=== PATIENT | male | born 1960 | race Caucasian/White ===

== ENCOUNTER 2019-07-31 00:39 | Observation (INO) ==
[2019-07-31 01:14] LABS: BASO# 0.02 X1000 (0.0-0.2); BASO% 0.3 % (0.0-0.8); EOS% 4.2 % (0.0-10.0); HEMATOCRIT 42.7 % (42.0-52.0); HEMOGLOBIN 14.3 g/dL (14.0-18.0); IMM GRAN# 0.01 X1000 (0.0-0.04); IMM GRAN% 0.1 % (0.0-0.5); LYMPH# 3.13 X1000 (1.2-3.4); LYMPH% 44.1 % (20.5-51.1); MCHC 33.5 g/dL (33-37); MCV 92.6 FL (81-99); MONO# 0.52 X1000 (0.11-0.59); MONO% 7.3 % (1.7-9.3); MPV 9.5 FL (7.4-10.4); NEUT# 3.12 X1000 (1.4-6.5); PLT 333 X1000 (130-400); RBC 4.61 XMIL (4.7-6.1); RDW 13.1 % (11.5-14.5)
[2019-07-31 01:19] LABS: BE -2.6 mmoll (-2.0-2.0); BLOOD TYPE VENOUS; HCO3-(ACT) 22.5 mmoll (22-27); PCO2(98.6) 31 mmHg (40-60); PO2(98.6) 51 mmHg (30-55); SAMPLE BLOOD; SAO2 89.1 % (40.0-85.0); pH(98.6) 7.43 (7.32-7.43)
[2019-07-31 01:44] LABS: AGAP 18; ALBUMIN 4.7 g/dL (3.5-5.0); ALKALINE PHOSPHATASE 54 U/L (32-122); BUN 15 mg/dL (8-22); CALCIUM 8.6 mg/dL (8.8-10.2); CHLORIDE 103 mmol/L (98-107); COSMO 283; CREATININE 0.8 mg/dL (0.7-1.2); ESTIMATED GFR > 60; GLUCOSE 153 mg/dL (70-104); GOT 19 U/L (10-34); GPT 21 U/L (10-44); POTASSIUM 4.2 mmol/L (3.5-5.1); SODIUM 140 mmol/L (136-145); TCO2 19 mmol/L (25-35); TOTAL BILIRUBIN < 0.15 mg/dL (0.20-1.00); TOTAL PROTEIN 7.2 g/dL (6.3-8.3)
[2019-07-31 01:55] LABS: INR 0.95; PROTIME 13.2 Seconds (11.0-16.0)
[2019-07-31] MEDS ORDERED: DUONEB (A & A) INH ONE (02:09)
--- NOTE | 2019-07-31 03:36 | PROVIDER DOCUMENTATION ---
This chart was entered by Yaquelin Cooley Scribe, acting as scribe for Anirudh Umanzor MD. HPI-Chest Pain - General Chief Complaint: Chest Pain Stated Complaint: SOB/NAUSEA Time Seen by Provider: 07/31/19 00:44 Source: patient Allergies/Adverse Reactions: Patient Allergies Allergy/AdvReac Type Severity Reaction Status Date / Time No Known Allergies Allergy Verified 07/31/19 02:51 Home Medications: Home Medication List Medication Instructions Recorded Confirmed Last Taken Type Sildenafil Citrate 20 mg PO DIRECTED 07/31/19 07/31/19 Unknown History - History of Present Illness-CP Nature of Presenting Problem: pt is a 59 yr old male presenting with complaint of chest pain and shortness of breath. pt admits left chest pain radiating to left hand, no prior hx. pt does admit hx of HTN. pt admits shortness of breath, nausea and vomiting. Location: reports: substernal Chest Pain Radiation: reports: other (left hand) Quality of Pain: reports: pressure Severity in ED: moderate Onset/Duration: this evening Timing: still present Context/Activities at Onset: reports: light activity Modifying Factors: improves with: nothing Associated Symptoms: reports: nausea, shortness of breath, vomiting. denies: diaphoresis, fever/chills Nitro Today/Relief: no nitro taken today Aspirin Treatment Today: no aspirin today Prior Chest Pain/Cardiac Workup: reports: no prior chest pain Similar Symptoms Previously?: No Recently Seen Here or By Another Healthcare Provider: No Review of Systems - Adult - REVIEW OF SYSTEMS - ADULT Constitutional: denies: fever, fatique Eyes: reports: no symptoms reported Ears, Nose, Mouth & Throat: reports: no symptoms reported Cardiovascular: reports: chest pain. denies: palpitations, syncope Respiratory: reports: shortness of breath. denies: cough, dyspnea on exertion Gastrointestinal: reports: nausea, vomiting. denies: abdominal pain Genitourinary: reports: no symptoms reported Musculoskeletal: denies: back pain, joint pain, neck pain Integumentary: reports: no symptoms reported Neurological: denies: dizziness/vertigo, headache/migraines Psychiatric: reports: no symptoms reported Endocrine: reports: no symptoms reported Hematologic/Lymphatic: reports: no symptoms reported Allergic/Immunologic: reports: no symptoms reported All Other Systems: Reviewed and Negative Past History - Adult - PAST MEDICAL HISTORY-ADULT Review of Records: reports: Old Records Reviewed, Nursing Assessment Review, Medications Reviewed, Social history reviewed & non-contributory. Major Childhood Illnesses: reports: denies history Cardiovascular: reports: denies history Respiratory: reports: denies history Gastrointestinal: reports: denies history Obstetrical/Gynecological: reports: denies history Genitourinary: reports: denies history Musculoskeletal: reports: chronic pain, neck/back injury Neurological: reports: denies history Psychiatric: reports: anxiety Endocrine/Immune: reports: denies history Other Conditions: reports: denies history - PRIOR SURGERIES/PROCEDURES Surgical/Procedure History: reports: none - IMMUNIZATION STATUS Childhood Immunizations: See Nurse Assessment Flu Vaccine: See Nurse Assessment - FAMILY HISTORY Family History: reviewed, not pertinent - SOCIAL HISTORY Smoking: denies Substance Use: denies Living Situation: family Physical Exam-General - PHYSICAL EXAM-ADULT Initial Vital Signs Reviewed: Yes - CONSTITUTIONAL General Appearance: alert, no apparent distress, anxious - EYES Eyes: PERRL/EOMI - HEAD, EARS, NOSE, MOUTH & THROAT HENMT: normocephalic/atraumatic, moist mucous membranes, normal ENT inspection - NECK Neck: non-tender, full range of motion, supple, normal inspection - RESPIRATORY Respiratory: chest non-tender, lungs clear, normal breath sounds, no respiratory distress, no accessory muscle use, increased rate - CARDIOVASCULAR Cardiovascular: normal peripheral pulses, regular rate, rhythm, no edema - GASTROINTESTINAL (ABDOMEN) Abdominal Exam: normal bowel sounds, non tender, soft - LYMPHATIC Lymphatic: no adenopathy - MUSCULOSKELETAL Back Exam: normal inspection Extremity: normal range of motion, non-tender, normal gait - SKIN Integumentary: normal color, normal turgor, warm/dry - NEUROLOGIC Neurologic: grossly normal, no motor/sensory deficits - PSYCHIATRIC Psych/Mental Status: anxious - HEART Score HEART Score: History: Slightly Suspicious HEART Score: ECG: Non-Specific Repolarization Disturbance/LBBB/PM HEART Score: Age: 45-65 Years HEART Score: Risk Factors for Atherosclerotic Disease: 1 or 2 Risk Factors HEART Score: Troponin: < or = Normal Limit Total HEART Score:: 3 Progress - PLAN OF CARE/RESULTS Progress/Plan/Lab Results: Vital Signs - 8 hr 07/31/19 00:40 07/31/19 01:00 07/31/19 01:15 Temperature 98.0 F Pulse Rate 72 66 65 Respiratory Rate 16 18 18 Blood Pressure 139/97 127/83 137/94 O2 Sat by Pulse Oximetry 98 98 95 07/31/19 02:43 Temperature Pulse Rate 69 Respiratory Rate 22 Blood Pressure O2 Sat by Pulse Oximetry 97 Laboratory Results - last 24 hr 07/31/19 07/31/19 07/31/19 00:49 00:49 00:49 WBC 7.10 RBC 4.61 L Hgb 14.3 Hct 42.7 MCV 92.6 MCH 31.0 MCHC 33.5 RDW Std Deviation 13.1 Plt Count 333 MPV 9.5 Immature Gran % (Auto) 0.1 Neut % (Auto) 44.0 Lymph % (Auto) 44.1 [place] % (Auto) 7.3 Eos % (Auto) 4.2 Baso % (Auto) 0.3 Immature Gran # (Auto) 0.01 Neut # (Auto) 3.12 Lymph # (Auto) 3.13 [place] # (Auto) 0.52 Eos # (Auto) 0.30 Baso # (Auto) 0.02 PT INR PTT (Actin FS) D-Dimer, Quantitative Specimen Type VBG pH VBG pCO2 VBG pO2 VBG HCO3 VBG O2 Saturation VBG Base Excess VBG Lactate Sodium 140 Potassium 4.2 Chloride 103 Carbon Dioxide 19 L Anion Gap 18 BUN 15 Creatinine 0.8 Estimated GFR/1.73 m2 > 60 BUN/Creatinine Ratio 19 Glucose 153 H Calculated Osmolality 283 Calcium 8.6 L Total Bilirubin < 0.15 L AST 19 ALT 21 Alkaline Phosphatase 54 Troponin T < 0.010 Ami-A-Fcyzxsfhwcv Pept Total Protein 7.2 Albumin 4.7 Globulin 3.0 Albumin/Globulin Ratio 2.0 Plasma Lactate Urine Source Urine Color Urine Turbidity Urine pH Ur Specific [place] Urine Protein Ur Glucose (Stick) Ur Ketones (Stick) Urine Blood Urine Nitrite Urine Bilirubin Urobilinogen Dipstick Urine Leukocytes Urine WBC (Auto) Urine RBC (Auto) U Epithel Cells (Auto) Urine Bacteria (Auto) Plasma/Serum Ethyl Alc 07/31/19 07/31/19 07/31/19 00:49 00:49 00:49 WBC RBC Hgb Hct MCV MCH MCHC RDW Std Deviation Plt Count MPV Immature Gran % (Auto) Neut % (Auto) Lymph % (Auto) [place] % (Auto) Eos % (Auto) Baso % (Auto) Immature Gran # (Auto) Neut # (Auto) Lymph # (Auto) [place] # (Auto) Eos # (Auto) Baso # (Auto) PT 13.2 INR 0.95 PTT (Actin FS) 23.0 D-Dimer, Quantitative Specimen Type VBG pH VBG pCO2 VBG pO2 VBG HCO3 VBG O2 Saturation VBG Base Excess VBG Lactate Sodium Potassium Chloride Carbon Dioxide Anion Gap BUN Creatinine Estimated GFR/1.73 m2 BUN/Creatinine Ratio Glucose Calculated Osmolality Calcium Total Bilirubin AST ALT Alkaline Phosphatase Troponin T Fin-S-Hjxwtfvvgzy Pept 19 Total Protein Albumin Globulin Albumin/Globulin Ratio Plasma Lactate Urine Source Urine Color Urine Turbidity Urine pH Ur Specific [place] Urine Protein Ur Glucose (Stick) Ur Ketones (Stick) Urine Blood Urine Nitrite Urine Bilirubin Urobilinogen Dipstick Urine Leukocytes Urine WBC (Auto) Urine RBC (Auto) U Epithel Cells (Auto) Urine Bacteria (Auto) Plasma/Serum Ethyl Alc 184 H 07/31/19 07/31/19 07/31/19 00:49 00:55 02:13 WBC RBC Hgb Hct MCV MCH MCHC RDW Std Deviation Plt Count MPV Immature Gran % (Auto) Neut % (Auto) Lymph % (Auto) [place] % (Auto) Eos % (Auto) Baso % (Auto) Immature Gran # (Auto) Neut # (Auto) Lymph # (Auto) [place] # (Auto) Eos # (Auto) Baso # (Auto) PT INR PTT (Actin FS) D-Dimer, Quantitative < 0.27 Specimen Type VENOUS VBG pH 7.43 VBG pCO2 31 L VBG pO2 51 VBG HCO3 22.5 VBG O2 Saturation 89.1 H VBG Base Excess -2.6 L VBG Lactate 2.80 H Sodium Potassium Chloride Carbon Dioxide Anion Gap BUN Creatinine Estimated GFR/1.73 m2 BUN/Creatinine Ratio Glucose Calculated Osmolality Calcium Total Bilirubin AST ALT Alkaline Phosphatase Troponin T Hbk-E-Pivtinfxaqj Pept Total Protein Albumin Globulin Albumin/Globulin Ratio Plasma Lactate 2.5 H Urine Source Urine Color Urine Turbidity Urine pH Ur Specific [place] Urine Protein Ur Glucose (Stick) Ur Ketones (Stick) Urine Blood Urine Nitrite Urine Bilirubin Urobilinogen Dipstick Urine Leukocytes Urine WBC (Auto) Urine RBC (Auto) U Epithel Cells (Auto) Urine Bacteria (Auto) Plasma/Serum Ethyl Alc 07/31/19 02:57 WBC RBC Hgb Hct MCV MCH MCHC RDW Std Deviation Plt Count MPV Immature Gran % (Auto) Neut % (Auto) Lymph % (Auto) [place] % (Auto) Eos % (Auto) Baso % (Auto) Immature Gran # (Auto) Neut # (Auto) Lymph # (Auto) [place] # (Auto) Eos # (Auto) Baso # (Auto) PT INR PTT (Actin FS) D-Dimer, Quantitative Specimen Type VBG pH VBG pCO2 VBG pO2 VBG HCO3 VBG O2 Saturation VBG Base Excess VBG Lactate Sodium Potassium Chloride Carbon Dioxide Anion Gap BUN Creatinine Estimated GFR/1.73 m2 BUN/Creatinine Ratio Glucose Calculated Osmolality Calcium Total Bilirubin AST ALT Alkaline Phosphatase Troponin T Eps-G-Rllukefxcad Pept Total Protein Albumin Globulin Albumin/Globulin Ratio Plasma Lactate Urine Source CLEAN CATCH Urine Color YELLOW Urine Turbidity CLEAR Urine pH 5.5 Ur Specific [place] 1.011 Urine Protein NEGATIVE Ur Glucose (Stick) NEGATIVE Ur Ketones (Stick) TRACE A Urine Blood NEGATIVE Urine Nitrite NEGATIVE Urine Bilirubin NEGATIVE Urobilinogen Dipstick NORMAL Urine Leukocytes NEGATIVE Urine WBC (Auto) <10 Urine RBC (Auto) <10 U Epithel Cells (Auto) <10 Urine Bacteria (Auto) NEGATIVE Plasma/Serum Ethyl Alc Orders Category Date Time Status CHEST-1 VIEW [RAD] Stat Exams 07/31/19 00:[address] THORAX W/CONTRAST [CT] Stat Exams 07/31/19 02:47 Taken ALCOHOL BLOOD Stat Lab 07/31/19 00:49 Completed BLOOD CULTURE [BLDCUL] Stat Lab 07/31/19 03:37 Ordered CBC WITH ELECTRONIC DIFF [HEME] Stat Lab 07/31/19 00:49 Completed COMPREHENSIVE METABOLIC PANEL [CHEM] Stat Lab 07/31/19 00:49 Completed D-DIMER [COAG] Stat Lab 07/31/19 00:49 Completed LACTATE, PLASMA [CHEM] Stat Lab 07/31/19 02:13 Completed PRO B-NATRIURETIC PEPTIDE Stat Lab 07/31/19 00:49 Completed PROTIME WITH INR [COAG] Stat Lab 07/31/19 00:49 Completed PTT [COAG] Stat Lab 07/31/19 00:49 Completed TROPONIN T Stat Lab 07/31/19 00:49 Completed UA [URINALYSIS W/POSS RFLX CULT] [URINALYSIS] Stat Lab 07/31/19 02:57 Completed VBG [VENOUS BLOOD GAS] [RESP] Routine Lab 07/31/19 00:55 Completed Albuterol 2.5MG/Ipratrop 0.5MG [Duoneb (A & A)] Med 07/31/19 02:09 Discontinued 3 ml INH NOW ONE Banana Bag X1 Bag Over 1 Hour Med 07/31/19 04:34 Ordered Mvi [M.v.i.-12] 10 ml Folic Acid 1 mg Magnesium Sulfate 1 gm Thiamine 100 mg 0.9% Sodium Chloride Inj [Ns] 1,000 ml IV NOW Aerosol Treatments Routine Oth 07/31/19 02:09 Completed Aerosol Treatments Stat Oth 07/31/19 02:09 Completed EKG [EKG] Stat Ther 07/31/19 00:46 Ordered Result Diagrams: 07/31/19 00:49 07/31/19 00:49 - EKG 1 Time of EKG reading by physician:: 00:46 EKG Read and Signed by:: Anirudh Umanzor EKG Interpretation (*Must complete 3 of following elements*): Abnormal Rate: 72 Rhythm: sinus with SA and occ PVCs [place]: normal QRS: PVC's - CT/MRI 1 CT Study: Thorax Impression: Abnormal, See EMR Report - CONSULTS/PCP/HOSPITALIST Notification #1 *Consult/PCP/Hospitalist*: Dr Mendenhall Time Discussed: 04:39 Consult Disposition: Admit Departure - Departure Date of Disposition Decision: 07/31/19 Time of Disposition Decision: 04:39 DIAGNOSIS: Alcohol intoxication, Chest pain, SOB (shortness of breath), Hypoxia Disposition: ADMITTED INPATIENT 09 Certified Medical Emergency: Emergent Condition: Fair Referrals and Follow-Ups: Giselle Corbin MD [Primary Care Provider] - - Critical Care Note This patient required my direct & personal management of CC.: No Attestation - Physician/ ROSENDO Attestation Patient care was provided by Advanced Practice Provider:: No The physician spent face to face time with patient:: Yes Advanced Practice Provider documentation review:: Supervising physician onsite and consulted in the evaluation and care of this patient. The physician did have a face to face encounter with the patient. This chart was documented by the indicated scribe, (Yaquelin Cooley Scribe) and accurately reflects the services I performed and decisions made by me, Anirudh Umanzor MD, as attested by the provider's signature.
[2019-07-31 03:40] LABS: URINE SOURCE CLEAN CATCH
[2019-07-31 03:46] LABS: BILIRUBIN URINE NEGATIVE (NEGATIVE); BLOOD URINE NEGATIVE (NEGATIVE); COLOR YELLOW; GLUCOSE URINE NEGATIVE (NEGATIVE); KETONE URINE TRACE mg/dL (NEGATIVE); LEUKOCYTES URINE NEGATIVE (NEGATIVE); NITRITE URINE NEGATIVE (NEGATIVE); PH URINE 5.5; PROTEIN URINE NEGATIVE (NEGATIVE); SP GRAVITY URINE 1.011; TURBIDITY URINE CLEAR (CLEAR); UROBILINOGEN URINE NORMAL (NORMAL)
[2019-07-31 03:49] LABS: UR EPITHELIAL CELLS <10 /HPF (<10); URINE BACTERIA NEGATIVE /HPF; URINE RBC <10 /HPF (<10); URINE WBC <10 /HPF (<10)
[2019-07-31] MEDS ORDERED: M.V.I.-12 10 ML, FOLIC ACID 1 MG, MAGNESIUM SULFATE 1 GM, THIAMINE 100 MG in NS 1,000 ML IV ONE (04:34)
[2019-07-31] MEDS ORDERED: MORPHINE IV PRN ×2 (04:42→08:55)
[2019-07-31] MEDS ORDERED: ZOFRAN IV PRN (04:42)
[2019-07-31] MEDS ORDERED: ASPIRIN PO ONE (06:07)
--- NOTE | 2019-07-31 06:07 | EKG Report ---
Test Performed on : 07/31/2019 00:46:39 AM Test Reason : chest pain Blood Pressure : / mmHG Vent. Rate : 072 BPM Atrial Rate : 072 BPM P-R Int : 158 ms QRS Dur : 110 ms QT Int : 410 ms P-R-T Axes : 035 003 041 degrees QTc Int : 448 ms Sinus rhythm. with sinus arrhythmia. with occasional premature ventricular complexes. Otherwise normal ECG When compared with ECG of 17-MAY-2018 10:23, premature ventricular complexes. are now present Unconfirmed Result
[2019-07-31] MEDS ORDERED: FLU VACCINE IM ONE (06:26)
[2019-07-31] MEDS: DUONEB (A & A) INH SCH ×3 (07:34→14:46)
[2019-07-31] MEDS ORDERED: TYLENOL WITH CODEINE #3 PO ONE (08:52)
[2019-07-31] MEDS ORDERED: ZOFRAN ODT PO ONE (08:52)
--- NOTE | 2019-07-31 08:56 | Diag Imaging Result Doc PS360 ---
EXAM: CHEST-1 VIEW HISTORY: chest pain TECHNIQUE: Single view. COMPARISON: 05/17/2018 FINDINGS: There is cardiomegaly.. The pulmonary vasculature is not congested. No infiltrate, effusion, or pneumothorax is appreciated. IMPRESSION: No acute cardiopulmonary abnormality is identified. Electronically signed by Oliva Donnelly 07/31/2019 8:54 AM
--- NOTE | 2019-07-31 09:26 | Diag Imaging Result Doc PS360 ---
EXAM: CT THORAX W/CONTRAST HISTORY: sob TECHNIQUE: Images were obtained from the lung apices through bases as per standard protocol. This exam was performed using automated exposure control, adjustment of mA or kV according to patient size, and/or use of iterative reconstruction technique. COMPARISON: None. FINDINGS: Mediastinum: The heart size appears normal. No pericardial effusion is appreciated. No pathologically enlarged lymph nodes are identified. No aortic aneurysm. Marked coronary artery calcification. No hilar lymphadenopathy. Mild debris within the airway. Pulmonary parenchyma: 4 mm nodule is noted right middle lobe 59. There is linear atelectasis or fibrosis posteriorly. No bronchiectasis. Pleura: There are no pleural effusions. Bones: No fracture or destructive lesion is identified. There is a hiatal hernia and hepatic steatosis. IMPRESSION: No focal consolidation. Incidental findings described above.. Electronically signed by Oliva Donnelly 07/31/2019 9:23 AM
[2019-07-31 09:31] LABS: AGAP 18; BUN 13 mg/dL (8-22); CALCIUM 8.4 mg/dL (8.8-10.2); CHLORIDE 108 mmol/L (98-107); COSMO 286; CREATININE 0.7 mg/dL (0.7-1.2); ESTIMATED GFR > 60; GLUCOSE 110 mg/dL (70-104); POTASSIUM 4.4 mmol/L (3.5-5.1); SODIUM 143 mmol/L (136-145); TCO2 17 mmol/L (25-35)
[2019-07-31] MEDS ORDERED: NS 1,000 ML IV SCH (11:45)
--- NOTE | 2019-07-31 14:14 | HISTORY AND PHYSICAL ---
CHIEF COMPLAINT: Chest pain, nausea and vomiting. HISTORY OF PRESENT ILLNESS: This is a 59-year-old gentleman who denies any prior health history. He presents to the emergency room complaining of substernal chest pain that he describes as a pressure. It started shortly after nausea and vomiting. He did state that it relieved somewhat with vomiting. He also complained of left hand pain that he states also started shortly after vomiting. He denied any prior episodes of chest pain. He denied any palpitations, any cough or any black or bloody vomitus or stools. PAST MEDICAL HISTORY: Denies. PAST SURGICAL HISTORY: Denies. FAMILY HISTORY: Positive for hypertension. He is unsure of coronary artery disease. SOCIAL HISTORY: He drinks alcohol. He is not forthcoming on how much he drinks or how often. He denies any tobacco or illicit drug use. ALLERGIES: No known drug allergies. HOME MEDICATIONS: Viagra. REVIEW OF SYSTEMS: Discussed with the patient with pertinent positives stated in the HPI. He denied any syncope, dizziness, any palpitations, any black or bloody vomitus or stools, a productive cough, any fevers or chills, any diarrhea, constipation, hematuria, dysuria, frequency, urgency. PHYSICAL EXAMINATION: GENERAL: This is a 59-year-old gentleman who is lying in the bed on the [facility] floor in no distress. VITAL SIGNS: Blood pressure is 134/87 with a heart rate of 71, respirations are 18, temperature is 97.6 degrees with room air saturations 99%. EYES: Pupils are equal, round, react to light. EOMs are intact. Sclerae are anicteric. HEENT: Head is normocephalic, atraumatic. Mucous membranes are moist. NECK: Supple with trachea midline. CARDIOVASCULAR: Regular rate and rhythm. S1 and S2 are appreciated. Calves are nontender bilateral. He has no lower extremity edema with peripheral pulses palpable x4 extremities. PULMONARY: Breath sounds are noted with scattered expiratory wheezes. Chest rises and falls symmetric with respiration. Chest wall is nontender to palpation. GASTROINTESTINAL: Abdomen is soft, nontender, nondistended with bowel sounds in all 4 quadrants. NEUROLOGIC: He is sleepy after having Tylenol #3. He is alert and oriented x3 with cranial nerves 2-12 grossly intact. SKIN: Warm and dry. LABORATORY DATA: WBC is 7 with hemoglobin 14.3, hematocrit 42.7, and platelets of 333,000. D- dimer is less than 0.276. Sodium 140, potassium 4.2, BUN 15, creatinine 0.8, glucose of 153. Troponins are negative on multiple occasions. Blood cultures are pending. Chest x-ray revealed no acute cardiopulmonary abnormality identified. ASSESSMENT AND PLAN: 1. Chest pain. We will continue to trend troponins. He will be placed on telemetry. 2. Nausea and vomiting. 3. Alcohol intoxication. 4. Shortness of breath with hypoxemia with O2 saturations that have dropped to 92% with wheezing. 5. Headache. Plan was discussed with Dr. Mendenhall. Dictated by AUSTYN Lancaster for Aubrey Mendenhall MD cc: AUSTYN Lancaster MD
[2019-07-31] MEDS ORDERED: LEVAQUIN 750 MG/D5W 750 MG/150 ML IVPB IV SCH (14:30)
[2019-07-31] MEDS ORDERED: MUCINEX PO SCH (14:45)
[2019-07-31] MEDS ORDERED: SOLU-MEDROL IV SCH (14:45)
[2019-07-31 15:31] VITALS: BP 151/94
[2019-07-31] MEDS ORDERED: CLINDAMYCIN 600 MG/D5W 600 MG/50 ML IVPB IV SCH (16:00)
--- NOTE | 2019-07-31 18:54 | HISTORY AND PHYSICAL ---
ADDENDUM: Patient seen and examined by myself. Full note dictated and discussed with nurse practitioner. Patient notes he has had shortness of breath, coughing. He works around plaster. We are going to admit him to the hospital to rule out myocardial infarction and we will follow. cc: Aubrey Mendenhall MD
[2019-08-01] MEDS ORDERED: PRILOSEC PO SCH (07:00)
--- NOTE | 2019-08-01 09:44 | ECHO REPORT ---
ORDER DATE: 07/31/2019 MEASUREMENTS: Septal thickness 0.8, posterior wall thickness 1.0, left ventricular internal diameter in systole 2.8, left ventricular internal diameter in diastole 5.0, aortic root 3.4, left atrium 3.5. SUMMARY: 1. Fair quality study. 2. Aortic valve is without evidence of structural abnormality and opens adequately on 2- dimensional images. The peak gradient across the aortic valve is 10 mmHg. Mitral, tricuspid, and pulmonic valves are without evidence of structural abnormality with trace tricuspid regurgitation. The estimated systolic PA pressure by Doppler is 25 mmHg. The aortic root is normal in size. 3. Normal left ventricular dimensions suggested. The estimated left ventricular ejection fraction appears to be at least 65%. No regional wall motion abnormalities are evident. Left atrium, right atrium, and right ventricle are normal in size with grossly preserved right ventricular systolic function. 4. No pericardial effusion. 5. Inferior vena cava not well demonstrated. cc: MD Aubrey Warren MD
--- NOTE | 2019-08-02 00:22 | DISCHARGE SUMMARY ---
ADMISSION DATE: 07/31/2019 DISCHARGE DATE: 07/31/2019 DISCHARGE DIAGNOSES: 1. Chest pain, resolved. 2. Nausea and vomiting. 3. Acute alcohol ingestion. 4. Shortness of breath with hypoxia, resolved. 5. Headache. DISCHARGE MEDICATIONS: Clindamycin 300 q.6, guaifenesin, Levaquin 750 for 6 days, Medrol Dosepak. CONSULTATIONS: None. PROCEDURES: None. BRIEF HOSPITAL COURSE: The patient is a 59-year-old male who presented to the hospital with increased cough, congestion, increased work of breathing and chest pain. He had actually recently done some [employer] work and his symptoms started after that. Had a CT of the chest which was effectively negative. His enzymes resolved. I did discuss with him that he has fatty liver and certainly needs to stop drinking. He has a small hiatal hernia. He does have a 4 mm nodule in the right middle lobe. This will need to be followed up outpatient. He will have a repeat scan per his primary care. DISPOSITION: The patient will be discharged home. We will continue antibiotics as he certainly may have gotten sick from his recent dust exposure and significant coughing episode, after which he started having some shortness of breath and chest pain. He will continue antibiotics. He will follow up outpatient in 1 week with his primary care. Certainly needs to have follow-up on his right middle lobe nodule, although currently it appears benign. Discussed with patient the perils of smoking. TIME SPENT: Greater than 30 minutes was spent in total care. cc: Aubrey Mendenhall MD
--- NOTE | 2019-08-02 14:51 | DISCHARGE SUMMARY ---
ADMISSION DATE: 07/31/2019 DISCHARGE DATE: 07/31/2019 DIAGNOSES: 1. Chest pain resolved, ruled out by troponins and EKG. 2. Nausea and vomiting, resolved. 3. Alcohol intoxication, resolved. 4. Shortness of breath with hypoxemia, resolved. 5. Headache, resolved. 6. 4 mm nodule, right middle lobe. MICROBIOLOGY: Blood cultures x2 are pending. HOSPITAL COURSE: Mr. Jenkins presented to the emergency room complaining of nausea, vomiting, and chest pain. He stated that the chest pain started after an episode of vomiting. It did relieve somewhat with vomiting. He did have some left hand pain that started after vomiting. It did resolve after presenting to the emergency room. All symptoms resolved shortly after arriving to the emergency room. He ruled out by troponins and EKG. CT of the chest revealed no focal consolidation. A 4 mm nodule in the right middle lobe with no fracture or destructive lesion. Mild debris within the airway. This was discussed with the patient and his as well. I called Dr. Corbin, his primary care physician. He reviewed the scan and will do further workup on an outpatient basis. Mr. 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 He did not wear a mask and he did say he inhaled and swallowed a lot of [employer]ulse [employer] dust prior to this episode. DISCHARGE VITAL SIGNS: Blood pressure is 150/90 with heart rate of 86, respirations 16, temperature is 98.5 degrees oral with room air saturations 97%. DISCHARGE PHYSICAL EXAMINATION: Cardiovascular: Regular rate and rhythm. S1 and S2 appreciated. Pulmonary: Breath sounds are clear with no increased work of breathing noted. Gastrointestinal: Abdomen is soft, nontender, nondistended. Bowel sounds in all 4 quadrants. Neurologic: He is alert and oriented x3. DISCHARGE MEDICATIONS: 1. Mucinex 600 mg p.o. b.i.d. as needed. 2. Medrol Dosepak, take as directed. 3. Levaquin 750 p.o. daily for 6 days. 4. Clindamycin 300 mg p.o. q. 6 hours. FOLLOW-UP: 1. He needs to call Dr. Corbin's office in the morning for a follow-up visit. Dr. Corbin stated he will see him within the next week. 2. 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 He developed wheezing throughout the chair and into the day, and steroids to taper were instituted, which would also help with any inflammation from sheet rock dust. The patient did state that he felt much better about an hour after having IV antibiotics and his first dose of steroids. Dictated by AUSTYN Lancaster for Aubrey Mendenhall MD cc: AUSTYN Lancaster MD
== END 2019-07-31 18:33 | disposition home or self-care (01) ==
LOC: P.ED 00:39 → P.MEDSURG 00:40 → INTOOBSV 00:40
PROVIDERS: ADMIT Family Medicine